=== PATIENT | female | born 1930 | race Caucasian/White ===

== ENCOUNTER 2017-10-10 08:59 | Inpatient (IN) | payer MEDICAID, MEDICARE ==
--- NOTE | 2017-10-10 10:15 | XRay Report ---
AP CHEST: HISTORY: Shortness of breath Borderline heart size and trace right pleural effusion is identified. There is hazy opacity in the right perihilar region which could represent congestion or developing infiltrate. The left lung is clear. IMPRESSION: Borderline cardiomegaly and trace right pleural effusion. Questionable right perihilar airspace opacity as described.
[2017-10-10 10:24] LABS: Basophils % (Auto) 0.2 % (0.0-1.8); Hematocrit 37.8 % (30.3-42.9); Hemoglobin 12.2 gm/dl (10.1-14.3); Lymphocytes # (Auto) 0.9 K/mm3 (1.2-5.4); Lymphocytes % (Auto) 6.1 % (13.4-35.0); Mean Corpuscular HGB Conc 32 % (30-34); Mean Corpuscular Hemoglobin 28 pg (28-32); Mean Corpuscular Volume 86 fl (79-97); Monocytes # (Auto) 1.4 K/mm3 (0.0-0.8); Monocytes % (Auto) 9.3 % (0.0-7.3); Platelet Count 282 K/mm3 (140-440); Red Blood Count 4.41 M/mm3 (3.65-5.03); Red Cell Distribution Width 15.1 % (13.2-15.2)
--- NOTE | 2017-10-10 10:34 | Emergency Department Report ---
ED General Adult HPI - General Chief complaint: Dyspnea/Respdistress Stated complaint: WEAKNESS Time Seen by Provider: 10/10/17 10:06 Source: family, EMS Mode of arrival: Stretcher Limitations: Language Barrier - History of Present Illness Initial comments: 87-year-old female history of hypertension and does take albuterol Lopressor amlodipine, has been not feeling herself for several days, history is from [employer] patient speaks limited Latvian, however she has had no altered mental status no change in baseline, she is here eval sob and cough, hx of pneunomia cough with a history of pneumonia or CHF cardiomegaly, she has no pain vital signs on arrival she was afebrile awake alert oriented and appropriate and nontoxic heart rate is 79 and respiratory rate 37 room air sat 88, P respiratory rate is improved normal blood pressure noted tachycardia she is awake and alert with no altered mental status per family history was from the family she has no stiff neck no headache no rash or chest pain or swelling -: Gradual, hour(s), days(s), unknown Radiation: non-radiation Severity scale (0 -10): 0 Associated Symptoms: cough, diaphoresis, malaise, shortness of breath. denies: confusion, chest pain, headaches, loss of appetite, nausea/vomiting, rash, seizure, syncope, weakness - Related Data Home Medications Medication Instructions Recorded Confirmed Last Taken Albuterol Oral Liq [Proventil] 2 mg PO BID 11/07/13 11/07/13 Unknown Metoprolol [Lopressor] 50 mg PO QDAY 11/07/13 11/07/13 Unknown amLODIPine [Norvasc] 2.5 mg PO DAILY 11/07/13 11/07/13 Unknown Previous Rx's Medication Instructions Recorded Last Taken Type Levofloxacin [Levaquin] 500 mg PO QDAY #5 tablet 11/10/13 Unknown Rx Allergies Allergy/AdvReac Type Severity Reaction Status Date / Time No Known Allergies Allergy Unverified 11/07/13 16:13 ED Review of Systems ROS: Stated complaint: WEAKNESS Other details as noted in HPI Comment: All other systems reviewed and negative Constitutional: malaise, weakness. denies: diaphoresis Respiratory: cough, shortness of breath. denies: orthopnea, stridor, wheezing Cardiovascular: denies: chest pain, palpitations, dyspnea on exertion, orthopnea , syncope Endocrine: denies: excessive sweating, flushing, intolerance to cold, intolerance to heat Gastrointestinal: denies: abdominal pain, nausea, vomiting, diarrhea, constipation, hematemesis, melena, hematochezia Skin: denies: rash, lesions Neurological: weakness. denies: headache, numbness, paresthesias, confusion, abnormal gait, vertigo Hematological/Lymphatic: denies: easy bruising, swollen glands ED Past Medical Hx - Past Medical History Previous Medical History?: Yes Hx Hypertension: Yes Additional medical history: high cholesterol - Surgical History Past Surgical History?: No - Social History Smoking Status: Unknown if ever smoked - Medications Home Medications: Home Medications Medication Instructions Recorded Confirmed Last Taken Type Albuterol Oral Liq [Proventil] 2 mg PO BID 11/07/13 11/07/13 Unknown History Metoprolol [Lopressor] 50 mg PO QDAY 11/07/13 11/07/13 Unknown History amLODIPine [Norvasc] 2.5 mg PO DAILY 11/07/13 11/07/13 Unknown History Levofloxacin [Levaquin] 500 mg PO QDAY #5 tablet 11/10/13 Unknown Rx ED Physical Exam - General Limitations: Language Barrier General appearance: alert, anxious - Head Head exam: Present: atraumatic, normocephalic - Eye Eye exam: Present: normal appearance, PERRL, EOMI - ENT ENT exam: Present: normal exam, normal orophraynx - Neck Neck exam: Present: normal inspection. Absent: tenderness, meningismus - Respiratory Respiratory exam: Present: wheezes, rales, rhonchi. Absent: stridor - Cardiovascular Cardiovascular Exam: Present: regular rate, normal rhythm. Absent: irregular rhythm - GI/Abdominal GI/Abdominal exam: Present: soft. Absent: distended, tenderness, guarding, rebound, mass, pulsatile mass - Extremities Exam Extremities exam: Present: normal inspection, normal capillary refill. Absent: joint swelling, calf tenderness - Neurological Exam Neurological exam: Present: alert, oriented X3, CN II-XII intact. Absent: motor sensory deficit - Skin Skin exam: Absent: cyanosis, diaphoretic, erythema, urticaria, vesicles, petechiae ED Course Vital Signs 10/10/17 10/10/17 10/10/17 09:02 09:10 09:30 Temperature 98.9 F Pulse Rate 80 79 78 Pulse Rate [ Bilateral Throughout] Pulse Rate [ Throughout] Respiratory 14 37 H 22 Rate Respiratory Rate [Bilateral Throughout] Respiratory Rate [ Throughout] Blood Pressure 136/62 136/62 O2 Sat by Pulse 87 88 97 Oximetry 10/10/17 10/10/17 10/10/17 09:48 10:00 11:00 Temperature Pulse Rate 76 67 Pulse Rate [ Bilateral Throughout] Pulse Rate [ Throughout] Respiratory 20 23 19 Rate Respiratory Rate [Bilateral Throughout] Respiratory Rate [ Throughout] Blood Pressure 131/51 131/51 O2 Sat by Pulse 97 94 96 Oximetry 10/10/17 10/10/17 10/10/17 11:15 12:00 13:00 Temperature Pulse Rate 76 78 Pulse Rate [ 71 Bilateral Throughout] Pulse Rate [ 70 Throughout] Respiratory 18 23 Rate Respiratory 19 Rate [Bilateral Throughout] Respiratory 20 Rate [ Throughout] Blood Pressure 128/59 123/64 O2 Sat by Pulse 95 93 Oximetry ED Medical Decision Making - Lab Data Result diagrams: 10/10/17 09:56 10/10/17 09:56 - EKG Data -: EKG Interpreted by Me - EKG Data When compared to previous EKG there are: no significant change Interpretation: no acute changes - Radiology Data Radiology results: report reviewed - Medical Decision Making Patient doeslikely recurrent pneumonia, blood cultures are pending, patient does not have any of sirs criteria or evidence of sepsis is noted at this time. However lactic acid is pending. She was given antibiotics and blood cultures. Case was discussed with Dr. Cates for abdomen. She has a history of cardiomegaly and CHF, was some mild elevated BnP with some likely mild CHF, she was given Lasix for this. She'll be admitted for admitted for pneumoniano accuet ischemic chantgs on ekg. Critical care attestation.: If time is entered above; I have spent that time in minutes in the direct care of this critically ill patient, excluding procedure time. ED Disposition Clinical Impression: Pneumonia, Hypoxia, CHF (congestive heart failure) Disposition: OP ADMIT IP TO THIS HOSP Is pt being admited?: Yes Condition: Stable Instructions: Bacterial Pneumonia (ED) Referrals: PRIMARY CARE, [Primary Care Provider] - 3-5 Days Time of Disposition: 13:35
[2017-10-10] MEDS ORDERED: LEVAQUIN 750MG/150ML 750 MG/150 ML BAG IV ONE (10:35)
[2017-10-10] MEDS ORDERED: PROVENTIL IH ONE (10:36)
[2017-10-10 10:43] LABS: Calcium 8.2 mg/dL (8.4-10.2)
[2017-10-10 10:45] LABS: Bacteria,Urine 1+ /HPF (Negative); Bilirubin,Urine NEG (Negative); Blood,Urine MOD (Negative); Color,Urine Amber (Yellow); Hyaline Casts,Urine 1 /LPF; Mucus,Urine FEW /HPF
[2017-10-10 10:47] LABS: Protein,Urine >500 mg/dL (Negative)
[2017-10-10] MEDS ORDERED: LASIX IV ONE (12:18)
--- NOTE | 2017-10-10 13:48 | History and Physical Report ---
History of Present Illness Chief complaint: weakness History of present illness: 87 YO Female with HTN, HLD presents to ED for evaluation. Pt is unable to speak [place] islander, but history is obtained through computer service technician. per computer service technician, the patient has experienced productive cough of clear sputum as well as weakness over the past 5 days with worsening symptoms over the past 2 days. No reports of fever, chills, CP, Palpitations, NVD, Syncope, unilateral leg swelling, calf pain, Headache, vision loss, falls, trauma, or recent ill contacts. Pt seen and evaluated in ED and found to have Pneumonia, as well as Acute hypoxemic respiratory failure with pulse oximetry on the 80's. Pt also found to have evidence of CHF. Pt admitted to telemetry. Cardiology consulted in ED. Past History Past Medical History: hypertension, hyperlipidemia Past Surgical History: No surgical history, Other (reviewed) Social history: . denies: smoking, alcohol abuse, prescription drug abuse Family history: hypertension Medications and Allergies Allergies Allergy/AdvReac Type Severity Reaction Status Date / Time No Known Allergies Allergy Unverified 11/07/13 16:13 Home Medications Medication Instructions Recorded Confirmed Last Taken Type Albuterol Oral Liq [Proventil] 2 mg PO BID 11/07/13 10/10/17 Unknown History Metoprolol [Lopressor] 50 mg PO QDAY 11/07/13 10/10/17 Unknown History amLODIPine [Norvasc] 2.5 mg PO DAILY 11/07/13 10/10/17 Unknown History Review of Systems Constitutional: weakness, no weight loss, no weight gain, no fever, no chills Ears, nose, mouth and throat: no ear pain, no ear discharge, no tinnitis, no decreased hearing, no nose pain, no nasal congestion, no nasal discharge Breasts: no change in shape, no swelling, no mass Cardiovascular: no chest pain, no orthopnea, no palpitations Respiratory: cough, no hemoptysis, no dyspnea on exertion, no congestion, no wheezing, no pleurisy Gastrointestinal: no nausea, no vomiting, no diarrhea, no constipation Genitourinary Female: no pelvic pain, no flank pain, no menorrhagia, no dysuria , no urinary frequency, no urgency Rectal: no pain, no incontinence, no bleeding Musculoskeletal: no neck stiffness, no neck pain, no shooting arm pain, no arm numbness/tingling, no low back pain, no shooting leg pain, no leg numbness/ tingling Integumentary: no rash, no pruritis, no redness, no sores, no wounds, no jaundice, no boils Neurological: no paralysis, no parathesias, no numbness, no tingling, no seizures, no syncope, no tremors Psychiatric: no anxiety, no memory loss, no change in sleep habits, no sleep disturbances, no insomnia, no hypersomnia Endocrine: no polyphagia, no excessive thirst, no polydipsia, no polyuria, no nocturia Hematologic/Lymphatic: no easy bruising, no easy bleeding, no lymphadenopathy, no lymphedema Allergic/Immunologic: no urticaria, no allergic rhinitis, no wheezing, no persistent infections, no anaphylaxis Exam - Constitutional Vitals: Temp Pulse Resp BP Pulse Ox 98.9 F 78 23 123/64 93 10/10/17 09:10 10/10/17 13:00 10/10/17 13:00 10/10/17 13:00 10/10/17 13:00 General appearance: Present: mild distress, cachectic - EENT Eyes: Present: PERRL ENT: hearing intact, clear oral mucosa - Neck Neck: Present: supple, normal ROM - Respiratory Respiratory effort: labored Respiratory: bilateral: diminished - Cardiovascular Heart Sounds: Present: S1 & S2. Absent: rub, click - Extremities Extremities: pulses symmetrical, No edema Peripheral Pulses: within normal limits - Abdominal General gastrointestinal: Present: soft, non-tender, non-distended, normal bowel sounds Female genitourinary: Present: normal - Integumentary Integumentary: Present: clear, warm, dry - Musculoskeletal Musculoskeletal: generalized weakness - Psychiatric Psychiatric: appropriate mood/affect, intact judgment & insight - Neurologic Neurologic: CNII-XII intact, moves all extremities Results - Labs CBC & Chem 7: 10/10/17 09:56 10/10/17 09:56 Labs: Abnormal lab results 10/10/17 10/10/17 10/10/17 Range/Units 09:56 09:56 09:56 WBC 15.1 H (4.5-11.0) K/mm3 Lymph % (Auto) 6.1 L (13.4-35.0) % [place] % (Auto) 9.3 H (0.0-7.3) % Lymph # 0.9 L (1.2-5.4) K/mm3 [place] # 1.4 H (0.0-0.8) K/mm3 Seg Neutrophils % 84.4 H (40.0-70.0) % Seg Neutrophils # 12.7 H (1.8-7.7) K/mm3 Sodium 146 H (137-145) mmol/L Potassium 3.4 L (3.6-5.0) mmol/L Chloride 108.7 H (98-107) mmol/L Glucose 150 H (65-100) mg/dL Calcium 8.2 L (8.4-10.2) mg/dL NT-Pro-B Natriuret Pep 1457 H (0-900) pg/mL Assessment and Plan - Patient Problems (1) Sepsis Current Visit: Yes Status: Acute Qualifiers: Sepsis type: sepsis due to unspecified organism Qualified Code(s): A41.9 - Sepsis, unspecified organism Plan to address problem: Sepsis protocol: IV antibiotic therapy, IVF resuscitation as tolerated, blood cultures, serial lactic acid levels, CBC, CMP, Urinalysis, Monitor uop q shift, Fluid bolus as per Sepsis protocol modified as to prevent fluid overload with respect to concomitant diagnosis of CHF, REspiratory Failure. (2) Acute respiratory failure Current Visit: Yes Status: Acute Qualifiers: Respiratory failure complication: hypoxia Qualified Code(s): J96.01 - Acute respiratory failure with hypoxia Plan to address problem: Supplemental oxygen, nebulizer therapy, Chest X ray, BNP, pulse oximetry, treat pneumonia, (3) CHF (congestive heart failure) Current Visit: Yes Status: Acute Qualifiers: Heart failure type: systolic Heart failure chronicity: acute Qualified Code(s): I50.21 - Acute systolic (congestive) heart failure Plan to address problem: Cardiology consulted, Echo, BNP, Thyroid panel, strict I/O, monitor uop q shift , Chest X ray, monitor serum creatnine, (4) Pneumonia Current Visit: Yes Status: Acute Qualifiers: Laterality: right Lung location: lower lobe of lung Plan to address problem: IV antibiotics, Chest X ray, supplemental oxygen, nebulizer therapy, blood cultures, Chest X ray, (5) DVT prophylaxis Current Visit: Yes Status: Acute Plan to address problem: SCD to BLE while in bed
[2017-10-10] MEDS ORDERED: ZOFRAN IV PRN (13:51)
[2017-10-10] MEDS ORDERED: NACL 0.9% 1000 ML IV ONE (13:51)
[2017-10-10] MEDS ORDERED: PROVENTIL IH PRN (13:51)
[2017-10-10] MEDS ORDERED: SODIUM CHLORIDE FLUSH SYRINGE 10 ML IV PRN (13:51)
[2017-10-10] MEDS ORDERED: TYLENOL PO PRN (13:51)
[2017-10-10 16:03] LABS: Free T4 (Free Thyroxine) 1.23 ng/dL (0.76-1.46)
--- NOTE | 2017-10-10 16:50 | Consultation ---
History of Present Illness Consult date: 10/10/17 Consult reason: congestive heart failure History of present illness: This is a frail, 87yr old Kiswahili woman who was brought to the emergency department with weakness and shortness of breath. History unobtainable due to language barrier. There were no reports of chest pain or palpitations. There is no lower extremity edema. Labs notable for a WBC of 15.1. Patient remains afebrile. A chest xray reports a borderline cardiomegaly with a hazy opacity in the right perihilar region. 12 lead ECG is a sinus rhythm, no acute ischemic changes. An echocardiogram done in 2013 reports a mild to moderate pulmonary hypertension with a right ventricular systolic pressure 43mmHG. Normal left ventricular systolic function, ejection fraction. A cardiac consultation is requested for evaluation of CHF. Medications and Allergies Allergies Allergy/AdvReac Type Severity Reaction Status Date / Time No Known Allergies Allergy Unverified 11/07/13 16:13 Home Medications Medication Instructions Recorded Confirmed Last Taken Type Albuterol Oral Liq [Proventil] 2 mg PO BID 11/07/13 10/10/17 Unknown History Metoprolol [Lopressor] 50 mg PO QDAY 11/07/13 10/10/17 Unknown History amLODIPine [Norvasc] 2.5 mg PO DAILY 11/07/13 10/10/17 Unknown History Active Meds: Active Medications Acetaminophen (Tylenol) 650 mg PO Q4H PRN PRN Reason: Pain MILD(1-3)/Fever >100.5/BEAR Albuterol (Proventil) 2.5 mg IH Q4HRT PRN PRN Reason: Shortness Of Breath Amlodipine Besylate (Norvasc) 2.5 mg PO DAILY [facility] Furosemide (Lasix) 20 mg IV 0600,1800 [facility] Azithromycin 500 mg/ Sodium (Chloride) 250 mls @ 250 mls/hr IV Q24HR [facility] Ceftriaxone Sodium (Rocephin/Ns 2 Gm/100 Ml) 2 gm in 100 mls @ 200 mls/hr IV Q24HR [facility]; Protocol Metoprolol Tartrate (Lopressor) 50 mg PO QDAY [facility] Ondansetron HCl (Zofran) 4 mg IV Q8H PRN PRN Reason: Nausea And Vomiting Sodium Chloride (Sodium Chloride Flush Syringe 10 Ml) 10 ml IV BID [facility] Sodium Chloride (Sodium Chloride Flush Syringe 10 Ml) 10 ml IV PRN PRN PRN Reason: LINE FLUSH Physical Examination Vital Signs Pulse Resp Pulse Ox 80 14 87 10/10/17 09:02 10/10/17 09:02 10/10/17 09:02 General appearance: no acute distress HEENT: Positive: PERRL Cardiac: Positive: Reg Rate and Rhythm Lungs: Positive: Decreased Breath Sounds Extremities: Absent: edema Results 10/10/17 09:56 10/10/17 09:56 CBC 10/10/17 Range/Units 09:56 WBC 15.1 H (4.5-11.0) K/mm3 RBC 4.41 (3.65-5.03) M/mm3 Hgb 12.2 (10.1-14.3) gm/dl Hct 37.8 (30.3-42.9) % Plt Count 282 (140-440) K/mm3 Lymph # 0.9 L (1.2-5.4) K/mm3 Keith # 1.4 H (0.0-0.8) K/mm3 Eos # 0.0 (0.0-0.4) K/mm3 Baso # 0.0 (0.0-0.1) K/mm3 Comprehensive Metabolic Panel 10/10/17 Range/Units 09:56 Sodium 146 H (137-145) mmol/L Potassium 3.4 L (3.6-5.0) mmol/L Chloride 108.7 H (98-107) mmol/L Carbon Dioxide 22 (22-30) mmol/L BUN 17 (7-17) mg/dL Creatinine 0.9 (0.7-1.2) mg/dL Glucose 150 H (65-100) mg/dL Calcium 8.2 L (8.4-10.2) mg/dL Assessment and Plan Shortness of breath Weakness
[2017-10-10] MEDS: LASIX IV SCH (22:11)
[2017-10-10] MEDS: SODIUM CHLORIDE FLUSH SYRINGE 10 ML IV SCH (22:11)
[2017-10-11] MEDS: LASIX IV SCH ×2 (05:09→17:12)
[2017-10-11] MEDS: LOPRESSOR PO SCH (09:26)
[2017-10-11] MEDS: NORVASC PO SCH (09:27)
[2017-10-11] MEDS ORDERED: ROCEPHIN/NS 2 GM/100 ML 2 GM/100 ML BAG IV SCH (10:00)
[2017-10-11] MEDS ORDERED: ZITHROMAX 500 MG in NACL 0.9% 250ML 250 ML IV SCH (10:00)
--- NOTE | 2017-10-11 10:39 | Progress Note ---
Assessment and Plan Assessment and plan: Sepsis Improving- afebrile, WBC trending down, continue IV antibiotic therapy, IVF resuscitation as tolerated, follow blood cultures Fluid bolus as per Sepsis protocol modified as to prevent fluid overload with respect to concomitant diagnosis of CHF, Respiratory Failure. Acute respiratory failure Continue Supplemental oxygen, nebulizer therapy, BNP, pulse oximetry, treat pneumonia CHF (congestive heart failure) Cardiology consulted, Echo results pending, BNP mildly elevated, strict I/O, monitor uop q shift Pneumonia Continue IV antibiotics, supplemental oxygen, nebulizer therapy, blood cultures , Chest X ray Hypokalemia Supplemented Debility PT/OT ordered DVT prophylaxis SCD to BLE while in bed History Interval history: Patient was interviewed with aid of Chinese educational sign language interpreter. Patient denies any pain at this time including chest pain. She also denies SOB, [place]. She's on O2 via nasal canula. Labs and nursing notes reviewed. Hospitalist Physical - Physical exam Narrative exam: General appearance: Present: no acute distress, well-nourished - EENT Eyes: Present: PERRL, EOM intact ENT: hearing intact, clear oral mucosa - Neck Present: supple, normal ROM - Respiratory Respiratory effort: normal Respiratory: bilateral: CTA - Cardiovascular Rhythm: regular Heart Sounds: Present: S1 & S2 - Extremities Extremities: no ischemia, No edema - Abdominal General gastrointestinal: soft, non-tender, non-distended - Integumentary Integumentary: Present: clear, warm, dry - Psychiatric Psychiatric: appropriate mood/affect, intact judgment & insight, cooperative - Neurologic Neurologic: CNII-XII intact, moves all extremities - Constitutional Vitals: Temp Pulse Resp BP Pulse Ox 98.6 F 128 H 16 118/78 93 10/11/17 04:15 10/11/17 09:26 10/11/17 04:15 10/11/17 09:26 10/11/17 10:25 Results - Labs CBC & Chem 7: 10/11/17 10:03 10/11/17 10:03 Labs: Laboratory Last Values WBC 15.1 K/mm3 (4.5-11.0) H 10/10/17 09:56 RBC 4.41 M/mm3 (3.65-5.03) 10/10/17 09:56 Hgb 12.2 gm/dl (10.1-14.3) 10/10/17 09:56 Hct 37.8 % (30.3-42.9) 10/10/17 09:56 MCV 86 fl (79-97) 10/10/17 09:56 MCH 28 pg (28-32) 10/10/17 09:56 MCHC 32 % (30-34) 10/10/17 09:56 RDW 15.1 % (13.2-15.2) 10/10/17 09:56 Plt Count 282 K/mm3 (140-440) 10/10/17 09:56 Lymph % (Auto) 6.1 % (13.4-35.0) L 10/10/17 09:56 Harper % (Auto) 9.3 % (0.0-7.3) H 10/10/17 09:56 Eos % (Auto) 0.0 % (0.0-4.3) 10/10/17 09:56 Baso % (Auto) 0.2 % (0.0-1.8) 10/10/17 09:56 Lymph # 0.9 K/mm3 (1.2-5.4) L 10/10/17 09:56 Harper # 1.4 K/mm3 (0.0-0.8) H 10/10/17 09:56 Eos # 0.0 K/mm3 (0.0-0.4) 10/10/17 09:56 Baso # 0.0 K/mm3 (0.0-0.1) 10/10/17 09:56 Seg Neutrophils % 84.4 % (40.0-70.0) H 10/10/17 09:56 Seg Neutrophils # 12.7 K/mm3 (1.8-7.7) H 10/10/17 09:56 Sodium 146 mmol/L (137-145) H 10/10/17 09:56 Potassium 3.4 mmol/L (3.6-5.0) L 10/10/17 09:56 Chloride 108.7 mmol/L (98-107) H 10/10/17 09:56 Carbon Dioxide 22 mmol/L (22-30) 10/10/17 09:56 Anion Gap 19 mmol/L 10/10/17 09:56 BUN 17 mg/dL (7-17) 10/10/17 09:56 Creatinine 0.9 mg/dL (0.7-1.2) 10/10/17 09:56 Estimated GFR 59 ml/min 10/10/17 09:56 BUN/Creatinine Ratio 19 % 10/10/17 09:56 Glucose 150 mg/dL (65-100) H 10/10/17 09:56 Lactic Acid 1.80 mmol/L (0.7-2.0) 10/10/17 20:17 Calcium 8.2 mg/dL (8.4-10.2) L 10/10/17 09:56 Troponin T < 0.010 ng/mL (0.00-0.029) 10/10/17 09:56 NT-Pro-B Natriuret Pep 1457 pg/mL (0-900) H 10/10/17 09:56 TSH 2.840 mlU/mL (0.270-4.200) 10/10/17 15:05 Free T4 1.23 ng/dL (0.76-1.46) 10/10/17 15:05 Urine Color Pilar (Yellow) 10/10/17 10:29 Urine Turbidity Clear (Clear) 10/10/17 10:29 Urine pH 5.0 (5.0-7.0) 10/10/17 10:29 Ur Specific Maud 1.018 (1.003-1.030) 10/10/17 10:29 Urine Protein >500 mg/dL (Negative) 10/10/17 10:29 Urine Glucose (UA) 50 mg/dL (Negative) 10/10/17 10:29 Urine Ketones Tr mg/dL (Negative) 10/10/17 10:29 Urine Blood Mod (Negative) 10/10/17 10:29 Urine Nitrite Neg (Negative) 10/10/17 10:29 Urine Bilirubin Neg (Negative) 10/10/17 10:29 Urine Urobilinogen 4.0 mg/dL (<2.0) 10/10/17 10:29 Ur Leukocyte Esterase Neg (Negative) 10/10/17 10:29 Urine WBC (Auto) 4.0 /HPF (0.0-6.0) 10/10/17 10:29 Urine RBC (Auto) 4.0 /HPF (0.0-6.0) 10/10/17 10:29 U Epithel Cells (Auto) 1.0 /HPF (0-13.0) 10/10/17 10:29 Urine Bacteria (Auto) 1+ /HPF (Negative) 10/10/17 10:29 Hyaline Casts 1 /LPF 10/10/17 10:29 Urine Mucus Few /HPF 10/10/17 10:29
[2017-10-11 12:39] LABS: Basophils % (Auto) 0.1 % (0.0-1.8); Eosinophils % (Auto) 0.1 % (0.0-4.3); Hematocrit 38.3 % (30.3-42.9); Hemoglobin 12.8 gm/dl (10.1-14.3); Lymphocytes # (Auto) 0.6 K/mm3 (1.2-5.4); Lymphocytes % (Auto) 5.6 % (13.4-35.0); Mean Corpuscular HGB Conc 34 % (30-34); Mean Corpuscular Hemoglobin 28 pg (28-32); Mean Corpuscular Volume 85 fl (79-97); Monocytes # (Auto) 0.9 K/mm3 (0.0-0.8); Monocytes % (Auto) 8.1 % (0.0-7.3); Platelet Count 259 K/mm3 (140-440); Red Blood Count 4.52 M/mm3 (3.65-5.03); Red Cell Distribution Width 14.9 % (13.2-15.2)
--- NOTE | 2017-10-11 13:42 | Progress Note ---
Assessment and Plan Shortness of breath Chest x-ray shows opacity in the right lower lobe, questionable infiltrate. Normal LVEF by echocardiogram. Weakness Hyperkalmia Conservative cardiac management. Subjective Date of service: 10/11/17 Interval history: Patient is resting in bed comfortably. No reported cardiac events on telemetry monitoring. Objective Vital Signs Temp Pulse Resp BP Pulse Ox 10/11/17 10:25 93 10/11/17 09:26 128 H 118/78 10/11/17 06:00 100 H 10/11/17 04:15 98.6 F 87 16 126/64 91 10/11/17 01:56 20 10/10/17 23:52 98.7 F 95 H 18 129/59 94 10/10/17 20:52 98.2 F 86 18 131/66 93 10/10/17 19:51 126/87 93 10/10/17 19:41 126/64 90 10/10/17 19:30 135/96 94 10/10/17 19:21 96 10/10/17 19:17 90 10/10/17 17:37 69 20 10/10/17 17:07 98.1 F 81 16 139/63 93 10/10/17 16:31 24 126/64 94 10/10/17 16:21 82 22 126/64 96 10/10/17 16:11 79 19 126/64 95 10/10/17 16:00 83 20 126/64 95 10/10/17 15:51 79 23 125/63 96 10/10/17 15:41 74 18 125/63 99 10/10/17 15:31 74 19 125/63 95 10/10/17 15:21 80 27 H 125/63 95 18 15:11 82 23 125/63 96 10/10/17 15:01 82 23 125/63 95 18 14:51 82 23 127/59 93 10/10/17 14:41 78 25 H 127/59 95 10/10/17 14:31 77 26 H 94 10/10/17 14:20 74 22 127/59 95 10/10/17 14:00 78 27 H 127/59 92 - Physical Examination General: No Apparent Distress HEENT: Positive: PERRL Cardiac: Positive: Reg Rate and Rhythm Lungs: Positive: Decreased Breath Sounds - Labs and Meds CBC 10/11/17 Range/Units 10:03 WBC 11.6 H (4.5-11.0) K/mm3 RBC 4.52 (3.65-5.03) M/mm3 Hgb 12.8 (10.1-14.3) gm/dl Hct 38.3 (30.3-42.9) % Plt Count 259 (140-440) K/mm3 Lymph # 0.6 L (1.2-5.4) K/mm3 [place] # 0.9 H (0.0-0.8) K/mm3 Eos # 0.0 (0.0-0.4) K/mm3 Baso # 0.0 (0.0-0.1) K/mm3 Comprehensive Metabolic Panel 10/11/17 Range/Units 10:03 Sodium 146 H (137-145) mmol/L Potassium 3.1 L (3.6-5.0) mmol/L Chloride 102.6 (98-107) mmol/L Carbon Dioxide 26 (22-30) mmol/L BUN 20 H (7-17) mg/dL Creatinine 0.9 (0.7-1.2) mg/dL Calcium 8.0 L (8.4-10.2) mg/dL
[2017-10-11] MEDS ORDERED: K-DUR PO ONE (14:00)
[2017-10-11] MEDS: SODIUM CHLORIDE FLUSH SYRINGE 10 ML IV SCH (14:50)
[2017-10-11] MEDS: cefTRIAXone 2 GM in NACL 0.9% 20 ML IV SCH (17:03)
--- NOTE | 2017-10-12 09:54 | Progress Note ---
Assessment and Plan Assessment and plan: Sepsis Resolved- afebrile, WBC WNL, continue IV antibiotic therapy, IVF resuscitation as tolerated, follow blood cultures - NGTD Fluid bolus as per Sepsis protocol modified as to prevent fluid overload with respect to concomitant diagnosis of CHF, Respiratory Failure. Acute respiratory failure Continue Supplemental oxygen, nebulizer therapy, BNP, pulse oximetry, treat pneumonia CHF (congestive heart failure) BNP mildly elevated, strict I/O, monitor uop q shift Echo shows global left ventricular systolic function normal with ejection fraction of 55-60%, Pneumonia Continue IV antibiotics, supplemental oxygen, nebulizer therapy, follow blood cultures Hypokalemia potassium is low today,Supplemented Debility PT/OT ordered DVT prophylaxis SCD to BLE while in bed Patient disposition The patient is clinically stable for discharge, awaiting placement at SNF History Interval history: Patient was interviewed with aid of Moroccan educational sign language interpreter via phone. Patient denies any pain at this time including chest pain. She also denies SOB, [place]. She 's on O2 via nasal canula, no new complaints at this time. Labs and nursing notes reviewed. Hospitalist Physical - Physical exam Narrative exam: General appearance: Present: no acute distress, well-nourished - EENT Eyes: Present: PERRL, EOM intact ENT: hearing intact, clear oral mucosa - Neck Present: supple, normal ROM - Respiratory Respiratory effort: normal Respiratory: bilateral: CTA - Cardiovascular Rhythm: regular Heart Sounds: Present: S1 & S2 - Extremities Extremities: no ischemia, No edema - Abdominal General gastrointestinal: soft, non-tender, non-distended - Integumentary Integumentary: Present: clear, warm, dry - Psychiatric Psychiatric: appropriate mood/affect, intact judgment & insight, cooperative - Neurologic Neurologic: CNII-XII intact, moves all extremities - Constitutional Vitals: Temp Pulse Resp BP Pulse Ox 97.6 F 89 18 144/74 95 10/12/17 07:51 10/12/17 07:51 10/12/17 07:51 10/12/17 07:51 10/12/17 07:51 Results - Labs CBC & Chem 7: 10/12/17 09:51 10/12/17 09:51 Labs: Laboratory Last Values WBC 11.6 K/mm3 (4.5-11.0) H 10/11/17 10:03 RBC 4.52 M/mm3 (3.65-5.03) 10/11/17 10:03 Hgb 12.8 gm/dl (10.1-14.3) 10/11/17 10:03 Hct 38.3 % (30.3-42.9) 10/11/17 10:03 MCV 85 fl (79-97) 10/11/17 10:03 MCH 28 pg (28-32) 10/11/17 10:03 MCHC 34 % (30-34) 10/11/17 10:03 RDW 14.9 % (13.2-15.2) 10/11/17 10:03 Plt Count 259 K/mm3 (140-440) 10/11/17 10:03 Lymph % (Auto) 5.6 % (13.4-35.0) L 10/11/17 10:03 [place] % (Auto) 8.1 % (0.0-7.3) H 10/11/17 10:03 Eos % (Auto) 0.1 % (0.0-4.3) 10/11/17 10:03 Baso % (Auto) 0.1 % (0.0-1.8) 10/11/17 10:03 Lymph # 0.6 K/mm3 (1.2-5.4) L 10/11/17 10:03 [place] # 0.9 K/mm3 (0.0-0.8) H 10/11/17 10:03 Eos # 0.0 K/mm3 (0.0-0.4) 10/11/17 10:03 Baso # 0.0 K/mm3 (0.0-0.1) 10/11/17 10:03 Seg Neutrophils % 86.1 % (40.0-70.0) H 10/11/17 10:03 Seg Neutrophils # 10.0 K/mm3 (1.8-7.7) H 10/11/17 10:03 Sodium 146 mmol/L (137-145) H 10/11/17 10:03 Potassium 3.1 mmol/L (3.6-5.0) L 10/11/17 10:03 Chloride 102.6 mmol/L (98-107) 10/11/17 10:03 Carbon Dioxide 26 mmol/L (22-30) 10/11/17 10:03 Anion Gap 21 mmol/L 10/11/17 10:03 BUN 20 mg/dL (7-17) H 10/11/17 10:03 Creatinine 0.9 mg/dL (0.7-1.2) 10/11/17 10:03 Estimated GFR 59 ml/min 10/11/17 10:03 BUN/Creatinine Ratio 22 % 10/11/17 10:03 Glucose 146 mg/dL (65-100) H 10/11/17 10:03 Lactic Acid 1.80 mmol/L (0.7-2.0) 10/10/17 20:17 Calcium 8.0 mg/dL (8.4-10.2) L 10/11/17 10:03 Troponin T < 0.010 ng/mL (0.00-0.029) 10/10/17 09:56 NT-Pro-B Natriuret Pep 1457 pg/mL (0-900) H 10/10/17 09:56 TSH 2.840 mlU/mL (0.270-4.200) 10/10/17 15:05 Free T4 1.23 ng/dL (0.76-1.46) 10/10/17 15:05 Urine Color [place] (Yellow) 10/10/17 10:29 Urine Turbidity Clear (Clear) 10/10/17 10:29 Urine pH 5.0 (5.0-7.0) 10/10/17 10:29 Ur Specific [place] 1.018 (1.003-1.030) 10/10/17 10:29 Urine Protein >500 mg/dL (Negative) 10/10/17 10:29 Urine Glucose (UA) 50 mg/dL (Negative) 10/10/17 10:29 Urine Ketones Tr mg/dL (Negative) 10/10/17 10:29 Urine Blood Mod (Negative) 10/10/17 10:29 Urine Nitrite Neg (Negative) 10/10/17 10:29 Urine Bilirubin Neg (Negative) 10/10/17 10:29 Urine Urobilinogen 4.0 mg/dL (<2.0) 10/10/17 10:29 Ur Leukocyte Esterase Neg (Negative) 10/10/17 10:29 Urine WBC (Auto) 4.0 /HPF (0.0-6.0) 10/10/17 10:29 Urine RBC (Auto) 4.0 /HPF (0.0-6.0) 10/10/17 10:29 U Epithel Cells (Auto) 1.0 /HPF (0-13.0) 10/10/17 10:29 Urine Bacteria (Auto) 1+ /HPF (Negative) 10/10/17 10:29 Hyaline Casts 1 /LPF 10/10/17 10:29 Urine Mucus Few /HPF 10/10/17 10:29
[2017-10-12 10:18] LABS: Basophils % (Auto) 0.2 % (0.0-1.8); Eosinophils # (Auto) 0.1 K/mm3 (0.0-0.4); Eosinophils % (Auto) 1.1 % (0.0-4.3); Hematocrit 43.4 % (30.3-42.9); Hemoglobin 14.3 gm/dl (10.1-14.3); Lymphocytes % (Auto) 9.2 % (13.4-35.0); Mean Corpuscular HGB Conc 33 % (30-34); Mean Corpuscular Hemoglobin 28 pg (28-32); Mean Corpuscular Volume 85 fl (79-97); Monocytes # (Auto) 0.8 K/mm3 (0.0-0.8); Platelet Count 353 K/mm3 (140-440); Red Blood Count 5.12 M/mm3 (3.65-5.03)
[2017-10-12 10:26] LABS: BUN/Creatinine Ratio 23; Blood Urea Nitrogen 16 mg/dL (7-17); Calcium 8.7 mg/dL (8.4-10.2); Hemolysis Index 12
[2017-10-12] MEDS: cefTRIAXone 2 GM in NACL 0.9% 20 ML IV SCH (12:16)
[2017-10-12] MEDS: NORVASC PO SCH (12:16)
[2017-10-12] MEDS: ZITHROMAX PO SCH (12:17)
[2017-10-12] MEDS: LOPRESSOR PO SCH (12:17)
[2017-10-12] MEDS: SODIUM CHLORIDE FLUSH SYRINGE 10 ML IV SCH ×2 (15:55→22:19)
[2017-10-12] MEDS ORDERED: K-DUR PO ONE (16:00)
[2017-10-12] MEDS ORDERED: NON-FORMULARY (Lovastatin [Altoprev] 40 MG) PO SCH (22:00)
[2017-10-12] MEDS: PRAVACHOL PO SCH (22:18)
[2017-10-13] MEDS: SODIUM CHLORIDE FLUSH SYRINGE 10 ML IV SCH ×2 (06:46→10:52)
[2017-10-13] MEDS: LOPRESSOR PO SCH (10:51)
[2017-10-13] MEDS: cefTRIAXone 2 GM in NACL 0.9% 20 ML IV SCH (10:51)
[2017-10-13] MEDS: ZITHROMAX PO SCH (10:52)
[2017-10-13] MEDS: NORVASC PO SCH (10:52)
--- NOTE | 2017-10-13 12:07 | Progress Note ---
<MAXIM TAYLOR - Last Filed: 10/13/17 11:56> Assessment and Plan Assessment and plan: Chest pain Cardiac enzymes ordered, EKG, consult cardiology if abnormal findings Sepsis Resolved- afebrile, WBC WNL, continue IV antibiotic therapy, IVF resuscitation as tolerated, follow blood cultures - NGTD Fluid bolus as per Sepsis protocol modified as to prevent fluid overload with respect to concomitant diagnosis of CHF, Respiratory Failure. Acute respiratory failure Continue Supplemental oxygen, nebulizer therapy, BNP, pulse oximetry, treat pneumonia CHF (congestive heart failure) BNP mildly elevated, strict I/O, monitor uop q shift Echo shows global left ventricular systolic function normal with ejection fraction of 55-60%, Pneumonia Continue IV antibiotics, supplemental oxygen, nebulizer therapy, follow blood cultures Hypokalemia potassium is low today,Supplemented Debility PT/OT ordered DVT prophylaxis SCD to BLE while in bed Patient disposition The patient is clinically stable for discharge, awaiting placement at SNF History Interval history: Patient was interviewed with aid of Gren[place] per diem interpreter via phone. Patient complains of chest and upper back pain, unable to quantify pain. She denies SOB , [place]. She's on O2 via nasal canula, no new complaints at this time. Labs and nursing notes reviewed. Hospitalist Physical - Physical exam Narrative exam: General appearance: Present: no acute distress, well-nourished - EENT Eyes: Present: PERRL, EOM intact ENT: hearing intact, clear oral mucosa - Neck Present: supple, normal ROM - Respiratory Respiratory effort: normal Respiratory: bilateral: Crackles - Cardiovascular Rhythm: regular Heart Sounds: Present: S1 & S2 - Extremities Extremities: no ischemia, No edema - Abdominal General gastrointestinal: soft, non-tender, non-distended - Integumentary Integumentary: Present: clear, warm, dry - Psychiatric Psychiatric: appropriate mood/affect, intact judgment & insight, cooperative - Neurologic Neurologic: CNII-XII intact, moves all extremities - Constitutional Vitals: Temp Pulse Resp BP Pulse Ox 97.8 F 86 18 148/74 96 10/13/17 08:06 10/13/17 08:06 10/13/17 08:06 10/13/17 08:06 10/13/17 08:06 Results - Labs CBC & Chem 7: 10/12/17 09:51 10/12/17 09:51 Labs: Laboratory Last Values WBC 10.8 K/mm3 (4.5-11.0) 10/12/17 09:51 RBC 5.12 M/mm3 (3.65-5.03) H 10/12/17 09:51 Hgb 14.3 gm/dl (10.1-14.3) 10/12/17 09:51 Hct 43.4 % (30.3-42.9) H 10/12/17 09:51 MCV 85 fl (79-97) 10/12/17 09:51 MCH 28 pg (28-32) 10/12/17 09:51 MCHC 33 % (30-34) 10/12/17 09:51 RDW 15.0 % (13.2-15.2) 10/12/17 09:51 Plt Count 353 K/mm3 (140-440) 10/12/17 09:51 Lymph % (Auto) 9.2 % (13.4-35.0) L 10/12/17 09:51 [place] % (Auto) 7.0 % (0.0-7.3) 10/12/17 09:51 Eos % (Auto) 1.1 % (0.0-4.3) 10/12/17 09:51 Baso % (Auto) 0.2 % (0.0-1.8) 10/12/17 09:51 Lymph # 1.0 K/mm3 (1.2-5.4) L 10/12/17 09:51 [place] # 0.8 K/mm3 (0.0-0.8) 10/12/17 09:51 Eos # 0.1 K/mm3 (0.0-0.4) 10/12/17 09:51 Baso # 0.0 K/mm3 (0.0-0.1) 10/12/17 09:51 Seg Neutrophils % 82.5 % (40.0-70.0) H 10/12/17 09:51 Seg Neutrophils # 8.9 K/mm3 (1.8-7.7) H 10/12/17 09:51 Sodium 142 mmol/L (137-145) 10/12/17 09:51 Potassium 3.5 mmol/L (3.6-5.0) L 10/12/17 09:51 Chloride 102.3 mmol/L (98-107) 10/12/17 09:51 Carbon Dioxide 26 mmol/L (22-30) 10/12/17 09:51 Anion Gap 17 mmol/L 10/12/17 09:51 BUN 16 mg/dL (7-17) 10/12/17 09:51 Creatinine 0.7 mg/dL (0.7-1.2) 10/12/17 09:51 Estimated GFR > 60 ml/min 10/12/17 09:51 BUN/Creatinine Ratio 23 % 10/12/17 09:51 Glucose 111 mg/dL (65-100) H 10/12/17 09:51 Lactic Acid 1.80 mmol/L (0.7-2.0) 10/10/17 20:17 Calcium 8.7 mg/dL (8.4-10.2) 10/12/17 09:51 Troponin T < 0.010 ng/mL (0.00-0.029) 10/10/17 09:56 NT-Pro-B Natriuret Pep 1457 pg/mL (0-900) H 10/10/17 09:56 TSH 2.840 mlU/mL (0.270-4.200) 10/10/17 15:05 Free T4 1.23 ng/dL (0.76-1.46) 10/10/17 15:05 Urine Color [place] (Yellow) 10/10/17 10:29 Urine Turbidity Clear (Clear) 10/10/17 10:29 Urine pH 5.0 (5.0-7.0) 10/10/17 10:29 Ur Specific [place] 1.018 (1.003-1.030) 10/10/17 10:29 Urine Protein >500 mg/dL (Negative) 10/10/17 10:29 Urine Glucose (UA) 50 mg/dL (Negative) 10/10/17 10:29 Urine Ketones Tr mg/dL (Negative) 10/10/17 10:29 Urine Blood Mod (Negative) 10/10/17 10:29 Urine Nitrite Neg (Negative) 10/10/17 10:29 Urine Bilirubin Neg (Negative) 10/10/17 10:29 Urine Urobilinogen 4.0 mg/dL (<2.0) 10/10/17 10:29 Ur Leukocyte Esterase Neg (Negative) 10/10/17 10:29 Urine WBC (Auto) 4.0 /HPF (0.0-6.0) 10/10/17 10:29 Urine RBC (Auto) 4.0 /HPF (0.0-6.0) 10/10/17 10:29 U Epithel Cells (Auto) 1.0 /HPF (0-13.0) 10/10/17 10:29 Urine Bacteria (Auto) 1+ /HPF (Negative) 10/10/17 10:29 Hyaline Casts 1 /LPF 10/10/17 10:29 Urine Mucus Few /HPF 10/10/17 10:29 <KRISTOPHER HAUSER M - Last Filed: 10/14/17 13:52> Assessment and Plan Assessment and plan: I saw and evaluated the patient. I agree with the findings and the plan of care as documented in the PA's note, with the following corrections and additions. Hospitalist Physical - Constitutional Vitals: Temp Pulse Resp BP Pulse Ox 98.8 F 65 20 127/60 96 10/14/17 13:08 10/14/17 13:08 10/14/17 13:08 10/14/17 13:08 10/14/17 13:08 Results - Labs CBC & Chem 7: 10/12/17 09:51 10/13/17 11:56 Labs: Laboratory Last Values WBC 10.8 K/mm3 (4.5-11.0) 10/12/17 09:51 RBC 5.12 M/mm3 (3.65-5.03) H 10/12/17 09:51 Hgb 14.3 gm/dl (10.1-14.3) 10/12/17 09:51 Hct 43.4 % (30.3-42.9) H 10/12/17 09:51 MCV 85 fl (79-97) 10/12/17 09:51 MCH 28 pg (28-32) 10/12/17 09:51 MCHC 33 % (30-34) 10/12/17 09:51 RDW 15.0 % (13.2-15.2) 10/12/17 09:51 Plt Count 353 K/mm3 (140-440) 10/12/17 09:51 Lymph % (Auto) 9.2 % (13.4-35.0) L 10/12/17 09:51 [place] % (Auto) 7.0 % (0.0-7.3) 10/12/17 09:51 Eos % (Auto) 1.1 % (0.0-4.3) 10/12/17 09:51 Baso % (Auto) 0.2 % (0.0-1.8) 10/12/17 09:51 Lymph # 1.0 K/mm3 (1.2-5.4) L 10/12/17 09:51 [place] # 0.8 K/mm3 (0.0-0.8) 10/12/17 09:51 Eos # 0.1 K/mm3 (0.0-0.4) 10/12/17 09:51 Baso # 0.0 K/mm3 (0.0-0.1) 10/12/17 09:51 Seg Neutrophils % 82.5 % (40.0-70.0) H 10/12/17 09:51 Seg Neutrophils # 8.9 K/mm3 (1.8-7.7) H 10/12/17 09:51 Sodium 141 mmol/L (137-145) 10/13/17 11:56 Potassium 4.1 mmol/L (3.6-5.0) 10/13/17 11:56 Chloride 100.7 mmol/L (98-107) 10/13/17 11:56 Carbon Dioxide 26 mmol/L (22-30) 10/13/17 11:56 Anion Gap 18 mmol/L 10/13/17 11:56 BUN 12 mg/dL (7-17) 10/13/17 11:56 Creatinine 0.7 mg/dL (0.7-1.2) 10/13/17 11:56 Estimated GFR > 60 ml/min 10/13/17 11:56 BUN/Creatinine Ratio 17 % 10/13/17 11:56 Glucose 155 mg/dL (65-100) H 10/13/17 11:56 Hemoglobin A1c 5.9 % (4-6) 10/12/17 09:51 Lactic Acid 1.80 mmol/L (0.7-2.0) 10/10/17 20:17 Calcium 8.5 mg/dL (8.4-10.2) 10/13/17 11:56 Troponin T < 0.010 ng/mL (0.00-0.029) 10/13/17 11:56 NT-Pro-B Natriuret Pep 1457 pg/mL (0-900) H 10/10/17 09:56 TSH 2.840 mlU/mL (0.270-4.200) 10/10/17 15:05 Free T4 1.23 ng/dL (0.76-1.46) 10/10/17 15:05 Urine Color [place] (Yellow) 10/10/17 10:29 Urine Turbidity Clear (Clear) 10/10/17 10:29 Urine pH 5.0 (5.0-7.0) 10/10/17 10:29 Ur Specific [place] 1.018 (1.003-1.030) 10/10/17 10: Urine Protein >500 mg/dL (Negative) 10/10/17 10:29 Urine Glucose (UA) 50 mg/dL (Negative) 10/10/17 10:29 Urine Ketones Tr mg/dL (Negative) 10/10/17 10:29 Urine Blood Mod (Negative) 10/10/17 10:29 Urine Nitrite Neg (Negative) 10/10/17 10:29 Urine Bilirubin Neg (Negative) 10/10/17 10:29 Urine Urobilinogen 4.0 mg/dL (<2.0) 10/10/17 10:29 Ur Leukocyte Esterase Neg (Negative) 10/10/17 10:29 Urine WBC (Auto) 4.0 /HPF (0.0-6.0) 10/10/17 10:29 Urine RBC (Auto) 4.0 /HPF (0.0-6.0) 10/10/17 10:29 U Epithel Cells (Auto) 1.0 /HPF (0-13.0) 10/10/17 10:29 Urine Bacteria (Auto) 1+ /HPF (Negative) 10/10/17 10:29 Hyaline Casts 1 /LPF 10/10/17 10:29 Urine Mucus Few /HPF 10/10/17 10:29
[2017-10-13 12:56] LABS: BUN/Creatinine Ratio 17; Blood Urea Nitrogen 12 mg/dL (7-17); Calcium 8.5 mg/dL (8.4-10.2); Hemolysis Index 0
[2017-10-14] MEDS: LOPRESSOR PO SCH (09:02)
[2017-10-14] MEDS: NORVASC PO SCH (09:02)
[2017-10-14] MEDS: cefTRIAXone 2 GM in NACL 0.9% 20 ML IV SCH (09:02)
[2017-10-14] MEDS: SODIUM CHLORIDE FLUSH SYRINGE 10 ML IV SCH ×2 (09:03→21:56)
[2017-10-14] MEDS: ZITHROMAX PO SCH (10:50)
--- NOTE | 2017-10-14 13:51 | Progress Note ---
Assessment and Plan Assessment and plan: 87-year-old Romanian female presented to the emergency department with complaints of cough and shortness of breath. Acute respiratory failure Sepsis due to pneumonia - Patient is on IV antibiotics and IV fluids - Patient markedly improved Lactic acidosis - Resolved Diastolic CHF - Currently patient is a symptomatic - Continue metoprolol Hyperlipidemia - Continue statin Hypertension - Continue amlodipine Debility - PT consulted, patient's brother asking for rehabilitation placement DVT prophylaxis - On Lovenox Disposition - Pending rehabilitation placement History Interval history: Patient was seen and evaluated this morning, patient didn't have any complaints. Hospitalist Physical - Physical exam Narrative exam: Not in cardiopulmonary distress. The patient appeared well nourished and normally developed. Vital signs as documented. Head exam is unremarkable. No scleral icterus . Neck is without jugular venous distension, thyromegaly, or carotid bruits. Lungs are clear to auscultation. Cardiac exam reveals regular rate and Rhythm. First and second heart sounds normal. No murmurs, rubs or gallops. Abdominal exam reveals normal bowel sounds, no masses, no organomegaly and no aortic enlargement. Extremities are nonedematous and both femoral and pedal pulses are normal. FLOOR WAXER: Alert and oriented 3. No focal weakness. - Constitutional Vitals: Temp Pulse Resp BP Pulse Ox 98.2 F 80 20 137/71 96 10/14/17 07:50 10/14/17 10:00 10/14/17 10:00 10/14/17 09:02 10/14/17 08:48 General appearance: Present: mild distress, cachectic Results - Labs CBC & Chem 7: 10/12/17 09:51 10/13/17 11:56 Labs: Laboratory Last Values WBC 10.8 K/mm3 (4.5-11.0) 10/12/17 09:51 RBC 5.12 M/mm3 (3.65-5.03) H 10/12/17 09:51 Hgb 14.3 gm/dl (10.1-14.3) 10/12/17 09:51 Hct 43.4 % (30.3-42.9) H 10/12/17 09:51 MCV 85 fl (79-97) 10/12/17 09:51 MCH 28 pg (28-32) 10/12/17 09:51 MCHC 33 % (30-34) 10/12/17 09:51 RDW 15.0 % (13.2-15.2) 10/12/17 09:51 Plt Count 353 K/mm3 (140-440) 10/12/17 09:51 Lymph % (Auto) 9.2 % (13.4-35.0) L 10/12/17 09:51 [place] % (Auto) 7.0 % (0.0-7.3) 10/12/17 09:51 Eos % (Auto) 1.1 % (0.0-4.3) 10/12/17 09:51 Baso % (Auto) 0.2 % (0.0-1.8) 10/12/17 09:51 Lymph # 1.0 K/mm3 (1.2-5.4) L 10/12/17 09:51 [place] # 0.8 K/mm3 (0.0-0.8) 10/12/17 09:51 Eos # 0.1 K/mm3 (0.0-0.4) 10/12/17 09:51 Baso # 0.0 K/mm3 (0.0-0.1) 10/12/17 09:51 Seg Neutrophils % 82.5 % (40.0-70.0) H 10/12/17 09:51 Seg Neutrophils # 8.9 K/mm3 (1.8-7.7) H 10/12/17 09:51 Sodium 141 mmol/L (137-145) 10/13/17 11:56 Potassium 4.1 mmol/L (3.6-5.0) 10/13/17 11:56 Chloride 100.7 mmol/L (98-107) 10/13/17 11:56 Carbon Dioxide 26 mmol/L (22-30) 10/13/17 11:56 Anion Gap 18 mmol/L 10/13/17 11:56 BUN 12 mg/dL (7-17) 10/13/17 11:56 Creatinine 0.7 mg/dL (0.7-1.2) 10/13/17 11:56 Estimated GFR > 60 ml/min 10/13/17 11:56 BUN/Creatinine Ratio 17 % 10/13/17 11:56 Glucose 155 mg/dL (65-100) H 10/13/17 11:56 Hemoglobin A1c 5.9 % (4-6) 10/12/17 09:51 Lactic Acid 1.80 mmol/L (0.7-2.0) 10/10/17 20:17 Calcium 8.5 mg/dL (8.4-10.2) 10/13/17 11:56 Troponin T < 0.010 ng/mL (0.00-0.029) 10/13/17 11:56 NT-Pro-B Natriuret Pep 1457 pg/mL (0-900) H 10/10/17 09:56 TSH 2.840 mlU/mL (0.270-4.200) 10/10/17 15:05 Free T4 1.23 ng/dL (0.76-1.46) 10/10/17 15:05 Urine Color [place] (Yellow) 10/10/17 10:29 Urine Turbidity Clear (Clear) 10/10/17 10:29 Urine pH 5.0 (5.0-7.0) 10/10/17 10:29 Ur Specific [place] 1.018 (1.003-1.030) 10/10/17 10:29 Urine Protein >500 mg/dL (Negative) 10/10/17 10:29 Urine Glucose (UA) 50 mg/dL (Negative) 10/10/17 10:29 Urine Ketones Tr mg/dL (Negative) 10/10/17 10:29 Urine Blood Mod (Negative) 10/10/17 10:29 Urine Nitrite Neg (Negative) 10/10/17 10:29 Urine Bilirubin Neg (Negative) 10/10/17 10:29 Urine Urobilinogen 4.0 mg/dL (<2.0) 10/10/17 10:29 Ur Leukocyte Esterase Neg (Negative) 10/10/17 10:29 Urine WBC (Auto) 4.0 /HPF (0.0-6.0) 10/10/17 10:29 Urine RBC (Auto) 4.0 /HPF (0.0-6.0) 10/10/17 10:29 U Epithel Cells (Auto) 1.0 /HPF (0-13.0) 10/10/17 10:29 Urine Bacteria (Auto) 1+ /HPF (Negative) 10/10/17 10:29 Hyaline Casts 1 /LPF 10/10/17 10:29 Urine Mucus Few /HPF 10/10/17 10:29
[2017-10-14] MEDS: PRAVACHOL PO SCH (21:55)
[2017-10-14] MEDS: LOVENOX SUB-Q SCH (21:56)
[2017-10-15] MEDS: LOPRESSOR PO SCH (10:07)
[2017-10-15] MEDS: NORVASC PO SCH (10:09)
[2017-10-15] MEDS: ZITHROMAX PO SCH (10:09)
[2017-10-15] MEDS: cefTRIAXone 2 GM in NACL 0.9% 20 ML IV SCH (11:38)
[2017-10-15] MEDS: SODIUM CHLORIDE FLUSH SYRINGE 10 ML IV SCH ×3 (11:38→22:58)
--- NOTE | 2017-10-15 12:36 | Progress Note ---
Assessment and Plan Assessment and plan: 87-year-old [place] female presented to the emergency department with complaints of cough and shortness of breath. Acute respiratory failure Sepsis due to pneumonia - Patient is on IV antibiotics and IV fluids - Patient markedly improved Lactic acidosis - Resolved Diastolic CHF - Currently patient is a symptomatic - Continue metoprolol Hyperlipidemia - Continue statin Hypertension - Continue amlodipine Debility - PT consulted, patient's brother asking for rehabilitation placement DVT prophylaxis - On Lovenox Disposition - Pending rehabilitation placement History Interval history: Patient was seen and evaluated this morning, patient didn't have any complaints. Family member was in the room when I examined her. Hospitalist Physical - Physical exam Narrative exam: Not in cardiopulmonary distress. The patient appeared well nourished and normally developed. Vital signs as documented. Head exam is unremarkable. No scleral icterus . Neck is without jugular venous distension, thyromegaly, or carotid bruits. Lungs are clear to auscultation. Cardiac exam reveals regular rate and Rhythm. First and second heart sounds normal. No murmurs, rubs or gallops. Abdominal exam reveals normal bowel sounds, no masses, no organomegaly and no aortic enlargement. Extremities are nonedematous and both femoral and pedal pulses are normal. HUMAN RESOURCES CONSULTANT: Alert and oriented 3. No focal weakness. - Constitutional Vitals: Temp Pulse Resp BP Pulse Ox 98.5 F 98 H 18 149/68 98 10/15/17 08:15 10/15/17 10:09 10/15/17 10:00 10/15/17 10:09 10/15/17 10:00 General appearance: Present: mild distress, cachectic Results - Labs CBC & Chem 7: 10/12/17 09:51 10/13/17 11:56 Labs: Laboratory Last Values WBC 10.8 K/mm3 (4.5-11.0) 10/12/17 09:51 RBC 5.12 M/mm3 (3.65-5.03) H 10/12/17 09:51 Hgb 14.3 gm/dl (10.1-14.3) 10/12/17 09:51 Hct 43.4 % (30.3-42.9) H 10/12/17 09:51 MCV 85 fl (79-97) 10/12/17 09:51 MCH 28 pg (28-32) 10/12/17 09:51 MCHC 33 % (30-34) 10/12/17 09:51 RDW 15.0 % (13.2-15.2) 10/12/17 09:51 Plt Count 353 K/mm3 (140-440) 10/12/17 09:51 Lymph % (Auto) 9.2 % (13.4-35.0) L 10/12/17 09:51 [place] % (Auto) 7.0 % (0.0-7.3) 10/12/17 09:51 Eos % (Auto) 1.1 % (0.0-4.3) 10/12/17 09:51 Baso % (Auto) 0.2 % (0.0-1.8) 10/12/17 09:51 Lymph # 1.0 K/mm3 (1.2-5.4) L 10/12/17 09:51 [place] # 0.8 K/mm3 (0.0-0.8) 10/12/17 09:51 Eos # 0.1 K/mm3 (0.0-0.4) 10/12/17 09:51 Baso # 0.0 K/mm3 (0.0-0.1) 10/12/17 09:51 Seg Neutrophils % 82.5 % (40.0-70.0) H 10/12/17 09:51 Seg Neutrophils # 8.9 K/mm3 (1.8-7.7) H 10/12/17 09:51 Sodium 141 mmol/L (137-145) 10/13/17 11:56 Potassium 4.1 mmol/L (3.6-5.0) 10/13/17 11:56 Chloride 100.7 mmol/L (98-107) 10/13/17 11:56 Carbon Dioxide 26 mmol/L (22-30) 10/13/17 11:56 Anion Gap 18 mmol/L 10/13/17 11:56 BUN 12 mg/dL (7-17) 10/13/17 11:56 Creatinine 0.7 mg/dL (0.7-1.2) 10/13/17 11:56 Estimated GFR > 60 ml/min 10/13/17 11:56 BUN/Creatinine Ratio 17 % 10/13/17 11:56 Glucose 155 mg/dL (65-100) H 10/13/17 11:56 Hemoglobin A1c 5.9 % (4-6) 10/12/17 09:51 Lactic Acid 1.80 mmol/L (0.7-2.0) 10/10/17 20:17 Calcium 8.5 mg/dL (8.4-10.2) 10/13/17 11:56 Troponin T < 0.010 ng/mL (0.00-0.029) 10/13/17 11:56 NT-Pro-B Natriuret Pep 1457 pg/mL (0-900) H 10/10/17 09:56 TSH 2.840 mlU/mL (0.270-4.200) 10/10/17 15:05 Free T4 1.23 ng/dL (0.76-1.46) 10/10/17 15:05 Urine Color [place] (Yellow) 10/10/17 10:29 Urine Turbidity Clear (Clear) 10/10/17 10:29 Urine pH 5.0 (5.0-7.0) 10/10/17 10:29 Ur Specific [place] 1.018 (1.003-1.030) 10/10/17 10:29 Urine Protein >500 mg/dL (Negative) 10/10/17 10:29 Urine Glucose (UA) 50 mg/dL (Negative) 10/10/17 10:29 Urine Ketones Tr mg/dL (Negative) 10/10/17 10:29 Urine Blood Mod (Negative) 10/10/17 10:29 Urine Nitrite Neg (Negative) 10/10/17 10:29 Urine Bilirubin Neg (Negative) 10/10/17 10:29 Urine Urobilinogen 4.0 mg/dL (<2.0) 10/10/17 10:29 Ur Leukocyte Esterase Neg (Negative) 10/10/17 10:29 Urine WBC (Auto) 4.0 /HPF (0.0-6.0) 10/10/17 10:29 Urine RBC (Auto) 4.0 /HPF (0.0-6.0) 10/10/17 10:29 U Epithel Cells (Auto) 1.0 /HPF (0-13.0) 10/10/17 10:29 Urine Bacteria (Auto) 1+ /HPF (Negative) 10/10/17 10:29 Hyaline Casts 1 /LPF 10/10/17 10:29 Urine Mucus Few /HPF 10/10/17 10:29
[2017-10-15] MEDS: LOVENOX SUB-Q SCH (22:57)
[2017-10-15] MEDS: PRAVACHOL PO SCH (22:57)
[2017-10-16 05:51] LABS: BUN/Creatinine Ratio 17; Blood Urea Nitrogen 10 mg/dL (7-17); Calcium 8.6 mg/dL (8.4-10.2); Hemolysis Index 9
[2017-10-16] MEDS: ZITHROMAX PO SCH (09:24)
[2017-10-16] MEDS: cefTRIAXone 2 GM in NACL 0.9% 20 ML IV SCH (09:24)
[2017-10-16] MEDS: NORVASC PO SCH (09:24)
[2017-10-16] MEDS: LOPRESSOR PO SCH (09:25)
[2017-10-16] MEDS: SODIUM CHLORIDE FLUSH SYRINGE 10 ML IV SCH ×2 (09:25→21:48)
--- NOTE | 2017-10-16 13:30 | Progress Note ---
Assessment and Plan Assessment and plan: 87-year-old [place] female presented to the emergency department with complaints of cough and shortness of breath. Acute respiratory failure Sepsis due to pneumonia - Patient is on IV antibiotics and IV fluids - Patient markedly improved Lactic acidosis - Resolved Diastolic CHF - Currently patient is a symptomatic - Continue metoprolol Hyperlipidemia - Continue statin Hypertension - Continue amlodipine Debility - PT consulted, patient's brother asking for rehabilitation placement DVT prophylaxis - On Lovenox Disposition - Pending rehabilitation placement History Interval history: Patient was seen and evaluated this morning, patient didn't have any complaints. Family member was in the room when I examined her. The floor nurse speak [place] and she interpreted for me. Hospitalist Physical - Physical exam Narrative exam: Not in cardiopulmonary distress. The patient appeared well nourished and normally developed. Vital signs as documented. Head exam is unremarkable. No scleral icterus . Neck is without jugular venous distension, thyromegaly, or carotid bruits. Lungs are clear to auscultation. Cardiac exam reveals regular rate and Rhythm. First and second heart sounds normal. No murmurs, rubs or gallops. Abdominal exam reveals normal bowel sounds, no masses, no organomegaly and no aortic enlargement. Extremities are nonedematous and both femoral and pedal pulses are normal. 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 - Constitutional Vitals: Temp Pulse Resp BP Pulse Ox 98.8 F 92 H 20 146/66 92 10/16/17 07:33 10/16/17 10:00 10/16/17 10:00 10/16/17 09:25 10/16/17 10:00 General appearance: Present: mild distress, cachectic Results - Labs CBC & Chem 7: 10/12/17 09:51 10/16/17 05:17 Labs: Laboratory Last Values WBC 10.8 K/mm3 (4.5-11.0) 10/12/17 09:51 RBC 5.12 M/mm3 (3.65-5.03) H 10/12/17 09:51 Hgb 14.3 gm/dl (10.1-14.3) 10/12/17 09:51 Hct 43.4 % (30.3-42.9) H 10/12/17 09:51 MCV 85 fl (79-97) 10/12/17 09:51 MCH 28 pg (28-32) 10/12/17 09:51 MCHC 33 % (30-34) 10/12/17 09:51 RDW 15.0 % (13.2-15.2) 10/12/17 09:51 Plt Count 353 K/mm3 (140-440) 10/12/17 09:51 Lymph % (Auto) 9.2 % (13.4-35.0) L 10/12/17 09:51 [place] % (Auto) 7.0 % (0.0-7.3) 10/12/17 09:51 Eos % (Auto) 1.1 % (0.0-4.3) 10/12/17 09:51 Baso % (Auto) 0.2 % (0.0-1.8) 10/12/17 09:51 Lymph # 1.0 K/mm3 (1.2-5.4) L 10/12/17 09:51 [place] # 0.8 K/mm3 (0.0-0.8) 10/12/17 09:51 Eos # 0.1 K/mm3 (0.0-0.4) 10/12/17 09:51 Baso # 0.0 K/mm3 (0.0-0.1) 10/12/17 09:51 Seg Neutrophils % 82.5 % (40.0-70.0) H 10/12/17 09:51 Seg Neutrophils # 8.9 K/mm3 (1.8-7.7) H 10/12/17 09:51 Sodium 140 mmol/L (137-145) 10/16/17 05:17 Potassium 3.8 mmol/L (3.6-5.0) 10/16/17 05:17 Chloride 101.0 mmol/L (98-107) 10/16/17 05:17 Carbon Dioxide 25 mmol/L (22-30) 10/16/17 05:17 Anion Gap 18 mmol/L 10/16/17 05:17 BUN 10 mg/dL (7-17) 10/16/17 05:17 Creatinine 0.6 mg/dL (0.7-1.2) L 10/16/17 05:17 Estimated GFR > 60 ml/min 10/16/17 05:17 BUN/Creatinine Ratio 17 % 10/16/17 05:17 Glucose 98 mg/dL (65-100) 10/16/17 05:17 Hemoglobin A1c 5.9 % (4-6) 10/12/17 09:51 Lactic Acid 1.80 mmol/L (0.7-2.0) 10/10/17 20:17 Calcium 8.6 mg/dL (8.4-10.2) 10/16/17 05:17 Troponin T < 0.010 ng/mL (0.00-0.029) 10/13/17 11:56 NT-Pro-B Natriuret Pep 1457 pg/mL (0-900) H 10/10/17 09:56 TSH 2.840 mlU/mL (0.270-4.200) 10/10/17 15:05 Free T4 1.23 ng/dL (0.76-1.46) 10/10/17 15:05 Urine Color [place] (Yellow) 10/10/17 10:29 Urine Turbidity Clear (Clear) 10/10/17 10:29 Urine pH 5.0 (5.0-7.0) 10/10/17 10:29 Ur Specific [place] 1.018 (1.003-1.030) 10/10/17 10:29 Urine Protein >500 mg/dL (Negative) 10/10/17 10:29 Urine Glucose (UA) 50 mg/dL (Negative) 10/10/17 10:29 Urine Ketones Tr mg/dL (Negative) 10/10/17 10:29 Urine Blood Mod (Negative) 10/10/17 10:29 Urine Nitrite Neg (Negative) 10/10/17 10:29 Urine Bilirubin Neg (Negative) 10/10/17 10:29 Urine Urobilinogen 4.0 mg/dL (<2.0) 10/10/17 10:29 Ur Leukocyte Esterase Neg (Negative) 10/10/17 10:29 Urine WBC (Auto) 4.0 /HPF (0.0-6.0) 10/10/17 10:29 Urine RBC (Auto) 4.0 /HPF (0.0-6.0) 10/10/17 10:29 U Epithel Cells (Auto) 1.0 /HPF (0-13.0) 10/10/17 10:29 Urine Bacteria (Auto) 1+ /HPF (Negative) 10/10/17 10:29 Hyaline Casts 1 /LPF 10/10/17 10:29 Urine Mucus Few /HPF 10/10/17 10:29
[2017-10-16] MEDS: PRAVACHOL PO SCH (21:47)
[2017-10-16] MEDS: LOVENOX SUB-Q SCH (21:47)
[2017-10-17] MEDS: LOPRESSOR PO SCH (09:38)
[2017-10-17] MEDS: NORVASC PO SCH (09:38)
[2017-10-17] MEDS: ZITHROMAX PO SCH (09:39)
[2017-10-17] MEDS: SODIUM CHLORIDE FLUSH SYRINGE 10 ML IV SCH (09:39)
[2017-10-17] MEDS: cefTRIAXone 2 GM in NACL 0.9% 20 ML IV SCH (09:39)
--- NOTE | 2017-10-17 13:08 | Discharge Summary ---
Providers - Providers Date of Admission: 10/10/17 13:51 Attending physician: KRISTOPHER HAUSER MD 10/11/17 16:32 Occupational Therapy Evaluate and Treat [CONS] Routine Comment: Reason For Exam: debility Physical Therapy Evaluation and Treat [CONS] Routine Comment: Reason For Exam: debility.. 10/11/17 16:38 Consult to Case Management [CONS] Routine Services Needed at Discharge: Other Notified:: shelter case manager Additional Physician Instructions: SNF placement, pt doesn't have family to take care of her Primary care physician: SENIOR DESIGNER/ART DIRECTOR Hospitalization Reason for admission: acute respiratory failure Condition: Stable Disposition: DC/[place]-03 SNF [facility] Time spent for discharge: 31 minutes - Discharge Diagnoses (1) Acute respiratory failure Status: Acute Qualifiers: Respiratory failure complication: hypoxia Qualified Code(s): J96.01 - Acute respiratory failure with hypoxia (2) CHF (congestive heart failure) Status: Acute Qualifiers: Heart failure type: systolic Heart failure chronicity: acute Qualified Code(s): I50.21 - Acute systolic (congestive) heart failure (3) Hypoxia Status: Acute (4) Pneumonia Status: Acute Qualifiers: Laterality: right Lung location: lower lobe of lung (5) Sepsis Status: Acute Qualifiers: Sepsis type: sepsis due to unspecified organism Qualified Code(s): A41.9 - Sepsis, unspecified organism Core Measure Documentation - Palliative Care Palliative Care/ Comfort Measures: Not Applicable - Core Measures Any of the following diagnoses?: none Exam - Physical Exam Narrative exam: Not in cardiopulmonary distress. The patient appeared well nourished and normally developed. Vital signs as documented. Head exam is unremarkable. No scleral icterus . Neck is without jugular venous distension, thyromegaly, or carotid bruits. Lungs are clear to auscultation. Cardiac exam reveals regular rate and Rhythm. First and second heart sounds normal. No murmurs, rubs or gallops. Abdominal exam reveals normal bowel sounds, no masses, no organomegaly and no aortic enlargement. Extremities are nonedematous and both femoral and pedal pulses are normal. 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 - Constitutional Vitals: Temp Pulse Resp BP Pulse Ox 98.4 F 83 20 140/64 92 10/17/17 07:35 10/17/17 09:38 10/17/17 07:35 10/17/17 09:38 10/17/17 10:00 Plan Activity: no restrictions Weight Bearing Status: Full Weight Bearing Diet: low salt Additional Instructions: [facility] Follow up with: PRIMARY CAREMD [Primary Care Provider] - 7 Days
[2017-10-17 13:51] VITALS: BP 130/54
== END 2017-10-17 16:58 | DRG 871 ==
LOC: ED 08:59 → 4A 13:51 → 2B-ACE 10-13 14:52
PROVIDERS: ADMIT Internal Medicine; ATTEND Internal Medicine
DX: A41.9 Sepsis, unspecified organism (principal); J18.9 Pneumonia, unspecified organism; J96.01 Acute respiratory failure with hypoxia; I50.41 Acute combined systolic (congestive) and diastolic (congestive) heart failure; E78.5 Hyperlipidemia, unspecified; I11.0 Hypertensive heart disease with heart failure; I27.20 Pulmonary hypertension, unspecified; E87.6 Hypokalemia; Z82.49 Family history of ischemic heart disease and other diseases of the circulatory system
CPT/HCPCS: 36415; 51702; 71045; 80048; 81001; 82140; 83036; 83880; 84439; 84443; 84484; 85025; 87040; 93005; 93010; 93306; 94640; 94760; 96374; 96375; A9270-GY; G8978-GP; G8979-GP; G8987-GO; G8988-GO; J0456; J0696; J1650; J1940; J1956; J7050